=== PATIENT | female | born 1985 | race Hispanic/Latino ===

== ENCOUNTER 2018-11-03 17:43 | Emergency (ER) | payer OTHER ==
[2018-11-03 18:16] VITALS: BP 118/78; PULSE 78; RESP 18; TEMP 98.9; O2SAT 100
--- NOTE | 2018-11-03 19:58 | ED PDOC ---
HPI: Abdomen Time Seen by Provider: 11/03/18 19:30 Chief Complaint (Nursing): Abdominal Pain Chief Complaint (Provider): Abdominal Pain History Per: Patient History/Exam Limitations: no limitations Onset/Duration Of Symptoms: Hrs Current Symptoms Are (Timing): Still Present Additional Complaint(s): 33 year old female arrives to ED for sudden onset of lower, stabbing abdominal pain that radiates to her vagina and rectum that began around 1700 earlier today after urinating. She reports experiencing some nausea for the past few days but denies any fever, chills, urinary complaints, new diet, back pain, injury, trauma, numbness, tingling sensation, vaginal discharge or bleeding. Patient reports she had abdominal pains in the past, however, symptoms does not feel si milar. PCP: none provided Past Medical History Reviewed: Historical Data, Nursing Documentation, Vital Signs Vital Signs: Last Vital Signs Temp 98.9 F 11/03/18 18:14 Pulse 78 11/03/18 18:14 Resp 18 11/03/18 18:14 BP 118/78 11/03/18 18:14 Pulse Ox 100 11/03/18 18:14 - Medical History PMH: No Chronic Diseases - Surgical History Surgical History: No Surg Hx - Family History Family History: States: Unknown Family Hx - Social History Current smoker - smoking cessation education provided: No Alcohol: Social Drugs: Denies - Allergies Allergies/Adverse Reactions: Allergies Allergy/AdvReac Type Severity Reaction Status Date / Time No Known Allergies Allergy Verified 11/03/18 18:14 Review of Systems ROS Statement: Except As Marked, All Systems Reviewed And Found Negative Constitutional: Negative for: Fever, Chills Gastrointestinal: Positive for: Nausea, Rectal Pain Genitourinary Female: Positive for: Pelvic Pain. Negative for: Dysuria, Frequency, Hematuria, Vaginal Discharge, Vaginal Bleeding Musculoskeletal: Negative for: Back Pain Neurological: Negative for: Numbness (or tingling) Physical Exam - Reviewed Nursing Documentation Reviewed: Yes Vital Signs Reviewed: Yes - Physical Exam Appears: Positive for: Well, Non-toxic, No Acute Distress Head Exam: Positive for: ATRAUMATIC, NORMAL INSPECTION, NORMOCEPHALIC Skin: Positive for: Normal Color Eye Exam: Positive for: Normal appearance Neck: Positive for: Normal, Painless ROM, Supple Cardiovascular/Chest: Positive for: Regular Rate, Rhythm Respiratory: Positive for: Normal Breath Sounds. Negative for: Respiratory Distress Gastrointestinal/Abdominal: Positive for: Normal Exam, Soft. Negative for: Tenderness, Guarding, Rebound Back: Positive for: Normal Inspection. Negative for: L CVA Tenderness, R CVA Tenderness Extremity: Positive for: Normal ROM (upper/lower) Neurologic/Psych: Positive for: Alert, Oriented - ECG O2 Sat by Pulse Oximetry: 100 (RA) Pulse Ox Interpretation: Normal - CT Scan/US US Other Rad Studies (CT/US): Read By Radiologist Other Rad Interpretation: R ovarian cyst Medical Decision Making Medical Decision Making: Initial Plan: * Urine dipstick * Urine * US transvaginal Time: 1942 --Patient declines pain medication when offered by provider as she states sympto ms are tolerable. Patient further states she does not want additional bloodwork or CT with IV contrast performed. Provided discussed in great details the benefit of a complete evaluation with risk of missing critical findings without further testing. Patient states she is strictly in the ED for evaluation of possible ectopic , although, she is unsure if she is . Provider agrees to patient's wishes and will evaluate per urine dip. Time: 1946 --Urine dip: negative for . Results discussed with patient. She agrees to further evaluation with US but refuses bloodwork or other imaging. Scribe Attestation: Documented by Radha Enciso, acting as a scribe for Alfredo Marte MD. Provider Scribe Attestation: All medical record entries made by the Scribe were at my direction and personally dictated by me. I have reviewed the chart and agree that the record accurately reflects my personal performance of the history, physical exam, medical decision making, and the department course for this patient. I have also personally directed, reviewed, and agree with the discharge instructions and disposition. 2200: Pt. refusing any further evaluation and treatment. Refuses ct and blood work. Aware of possibly missing, colon, appendix, or other issues which could cause or decreased functioning. Pt. aware and still refuses. Has capacity to make decisions. Is aaox3. Significant other with pt. and agrees with pt. decision. Will be with her. Disposition - Clinical Impression Clinical Impression: Abdominal pain, Ovarian cyst - Patient ED Disposition Is Patient to be Admitted: No Counseled Patient/Family Regarding: Studies Performed, Diagnosis - Disposition Referrals: [facility] [Outside] - 11/06/18 [facility] [Outside] - 11/06/18 Disposition: Routine/Home Disposition Time: 22:05 Condition: STABLE Additional Instructions: You are aware that we have not done any catscan or blood work. We can't tell you if there is any colon, appendix, or other issues going on. Come back right away for further evaluation. Instructions: Ovarian Cysts, Acute Abdomen (Belly Pain), Adult (DC)
--- NOTE | 2018-11-04 18:52 | US ---
Date of service: 11/03/2018 HISTORY: vaginal bleeding COMPARISON: None available. TECHNIQUE: Transvaginal sonographic evaluation of the pelvis performed. FINDINGS: UTERUS: Measures 7.8 x 3.8 x 4.5 cm. Normal in size and appearance. No fibroid or other mass lesion seen. ENDOMETRIUM: Endometrium is slightly thickened measuring approximately 1.3 cm diameter with an elliptical shaped intraluminal hyper echoic masslike lesion that measures approximately approximately 1.3 x x 0.9 cm and exhibits increased vascularity. Findings could represent an endo medial polyps however the possibility of localized endometrial hyperplasia or endometrial carcinoma not excluded. 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 Consider follow-up hysteroscopy and/or biopsy. CERVIX: No cervical abnormality identified. RIGHT OVARY: Measures 3.9 x2 0.8 x 4.3 cm cm. No solid mass. Normal flow. Small cyst measuring approximately 2.2 x 1.9 x 1.8 cm LEFT OVARY: Measures 3.3 x 1.6 x 2.9 cm cm. No solid mass. Normal flow. FREE FLUID: No significant free fluid noted. OTHER FINDINGS: None. IMPRESSION: There is an echogenic masslike lesion within the endometrial canal that exhibits increased vascularity. Rule out endometrial polyp versus endometrial hyperplasia or endometrial carcinoma. SALES [employer] consultation recommended. Consider follow-up hysteroscopy and/or biopsy. Small right ovarian cyst. Concordant preliminary findings provided by overnight radiology service
== END 2018-11-03 22:08 | disposition home or self-care (01) ==
LOC: H.ER 17:43
DX: R10.9 Unspecified abdominal pain (principal); N83.201 Unspecified ovarian cyst, right side; N93.9 Abnormal uterine and vaginal bleeding, unspecified